=== PATIENT | female | born 1985 | race African-American/Black ===

== ENCOUNTER 2019-05-25 05:20 | Emergency (ER) | payer OTHER ==
[2019-05-25 05:53] LABS: ABS Monocytes 0.4 10^3/ul (0-0.8); ABS Neutrophils 2.8 10^3/ul (1.5-7.7); Eosinophil % 0.5 %; Hematocrit 34 % (35-47); Hemoglobin 10.6 g/dL (12.0-16.0); Lymphocyte % 37.3 %; Mean Corpuscular HGB Conc 32 g/dL (31-36); Mean Corpuscular Hemoglobin 23 pg (27-31); Mean Corpuscular Volume 72 fL (80-97); Mean Platelet Volume 8.5 fL (7.4-10.4); Platelet Count 300 10^3/uL (150-450); Red Blood Count 4.67 10^6 /uL (3.70-4.87); Red Cell Distribution Width 19 % (10-15); White Blood Count 5.2 10^3/uL (3.5-10.8)
[2019-05-25 05:56] LABS: INR 1.05 (0.82-1.09)
[2019-05-25 06:12] LABS: Albumin 4.1 g/dL (3.2-5.2); Albumin/Globulin Ratio 1.4 (1-3); BUN/Creatinine Ratio 13.6 (8-20); EGFR African American 97.9 (>60); EGFR Non-African American 80.9 (>60); Globulin 2.9 g/dL (2-4); Potassium 3.4 mmol/L (3.5-5.0); Total Bilirubin 0.2 mg/dL (0.2-1.0)
[2019-05-25 06:40] VITALS: BP 153/88
--- NOTE | 2019-05-25 10:34 | ED ---
HPI Chest Pain - HPI Summary HPI Summary: This patient is a 34-year-old obese female who presents to the ED with midsternal chest pain which is nonradiating. She states she's never had this before. She states she awoke and had the chest pain which lasted approximately 15 minutes and dissipated prior to arrival. On arrival into the ED, patient is asymptomatic. She states she did not have shortness of breath, no radiation of chest pain, no abdominal pain, no diaphoresis, jaw pain or neck pain while having the chest pain symptoms. The chest pain did not radiate through to the back and was not tearing and sensation. She has no cardiac history. She takes no medications. No family history of cardiac disease. Pt denies eating anything abnormal this morning and has no hx of GERD. Risks include obesity. Patient is nonsmoker. Denies caffeine, drugs or alcohol. No recent travel, calf pain, known malignancy or OCP use. - History of Current Complaint Chief Complaint: EDChestPainROMI Time Seen by Provider: 05/25/19 05:50 Hx Obtained From: Patient Onset/Duration: Started Hours Ago Timing: Constant Initial Severity: Mild Current Severity: None Pain Intensity: 0 Pain Scale Used: 0-10 Numeric Chest Pain Location: Mid Sternal Chest Pain Radiates: No Character: Dull/Aching Aggravating Factor(s): Nothing Alleviating Factor(s): Nothing Associated Signs and Symptoms: Positive: Negative - Risk Factors Pulmonary Embolism Risk Factors: Negative TAD Risk Factors: Negative - Allergy/Home Medications Allergies/Adverse Reactions: Allergies Allergy/AdvReac Type Severity Reaction Status Date / Time No Known Allergies Allergy Verified 05/25/19 05:30 Home Medications: Home Medications NK [No Home Medications Reported] 05/25/19 [History Confirmed 05/25/19] PMH/Surg Hx/FS Hx/Imm Hx Previously Healthy: Yes - Immunization History Hx Pertussis Vaccination: No Immunizations Up to Date: Yes Infectious Disease History: No Infectious Disease History: Denies: Traveled Outside the [place] in Last 30 Days - Social History Occupation: Employed Full-time Lives: Alone Alcohol Use: None Hx Substance Use: No Substance Use Type: Reports: None Hx Tobacco Use: No Smoking Status (MU): Never Smoked Tobacco Review of Systems Negative: Fever, Chills, Fatigue, Skin Diaphoresis Negative: Dental Pain Positive: Chest Pain. Negative: Palpitations Negative: Shortness Of Breath, Cough Negative: Abdominal Pain Genitourinary: Negative Positive: no symptoms reported, see HPI Negative: Arthralgia, Myalgia Negative: Headache Psychological: Normal All Other Systems Reviewed And Are Negative: Yes Physical Exam Triage Information Reviewed: Yes Vital Signs On Initial Exam: Initial Vitals Temp Pulse Resp BP Pulse Ox 98.6 F 90 20 0/0 100 05/25/19 05:30 05/25/19 05:30 05/25/19 05:30 05/25/19 05:30 05/25/19 05:30 Vital Signs Reviewed: Yes Appearance: Positive: Well-Appearing, Well-Nourished, Obese Skin: Positive: Warm, Skin Color Reflects Adequate Perfusion Head/Face: Positive: Normal Head/Face Inspection Eyes: Positive: EOMI, GLORIA, Conjunctiva Clear Neck: Positive: Supple, No Lymphadenopathy Respiratory/Lung Sounds: Positive: Clear to Auscultation, Breath Sounds Present Cardiovascular: Positive: RRR, Pulses are Symmetrical in both Upper and Lower Extremities Musculoskeletal: Positive: Normal, Strength/ROM Intact Neurological: Positive: Speech Normal Psychiatric: Positive: Normal, Affect/Mood Appropriate AVPU Assessment: Alert Procedures - Sedation Patient Received Moderate/Deep Sedation with Procedure: No Diagnostics - Vital Signs Vital Signs Temp Pulse Resp BP Pulse Ox 05/25/19 06:40 97.2 F 82 19 153/88 100 05/25/19 06:29 73 15 153/88 100 05/25/19 06:00 69 22 99 05/25/19 05:40 84 20 100 05/25/19 05:38 83 30 183/87 100 05/25/19 05:30 98.6 F 90 20 0/0 100 - Laboratory Lab Results: Lab Results 05/25/19 05/25/19 05/25/19 Range/Units 05:39 05:39 05:39 WBC 5.2 (3.5-10.8) 10^3/uL RBC 4.67 (3.70-4.87) 10^6 /uL Hgb 10.6 L (12.0-16.0) g/dL Hct 34 L (35-47) % MCV 72 L (80-97) fL MCH 23 L (27-31) pg MCHC 32 (31-36) g/dL RDW 19 H (10-15) % Plt Count 300 (150-450) 10^3/uL MPV 8.5 (7.4-10.4) fL Neut % (Auto) 53.5 % Lymph % (Auto) 37.3 % [place] % (Auto) 7.8 % Eos % (Auto) 0.5 % Baso % (Auto) 0.9 % Absolute Neuts (auto) 2.8 (1.5-7.7) 10^3/ul Absolute Lymphs (auto) 2.0 (1.0-4.8) 10^3/ul Absolute Monos (auto) 0.4 (0-0.8) 10^3/ul Absolute Eos (auto) 0.0 (0-0.6) 10^3/ul Absolute Basos (auto) 0.0 (0-0.2) 10^3/ul Absolute Nucleated RBC 0.0 10^3/ul Nucleated RBC % 0.0 INR (Anticoag Therapy) 1.05 (0.82-1.09) Sodium 139 (135-145) mmol/L Potassium 3.4 L (3.5-5.0) mmol/L Chloride 106 (101-111) mmol/L Carbon Dioxide 25 (22-32) mmol/L Anion Gap 8 (2-11) mmol/L BUN 11 (6-24) mg/dL Creatinine 0.81 (0.51-0.95) mg/dL Est GFR ( Amer) 97.9 (>60) Est GFR (Non-Af Amer) 80.9 (>60) BUN/Creatinine Ratio 13.6 (8-20) Glucose 99 (70-100) mg/dL Calcium 9.0 (8.6-10.3) mg/dL Total Bilirubin 0.20 (0.2-1.0) mg/dL AST 14 (13-39) U/L ALT 10 (7-52) U/L Alkaline Phosphatase 72 (34-104) U/L Troponin I 0.00 (<0.04) ng/mL Total Protein 7.0 (6.4-8.9) g/dL Albumin 4.1 (3.2-5.2) g/dL Globulin 2.9 (2-4) g/dL Albumin/Globulin Ratio 1.4 (1-3) Result Diagrams: 05/25/19 05:39 05/25/19 05:39 Lab Statement: Any lab studies that have been ordered have been reviewed, and results considered in the medical decision making process. Chest Pain Course/Dx - Course Course Of Treatment: Patient is evaluated for midsternal chest pain which was present acute onset this morning around 5:30 AM, lasting 15 minutes and dissipated prior to arrival. Patient states she wanted to "make sure it wasn't my heart." She has no cardiac history. No family of cardiac disease. Denies smoking history. Denies OCP use, history of hypertension or diabetes. Patient does endorse obesity. Patient denies any symptoms currently and denies any shortness of breath or CP. Labs obtained which are unremarkable including a troponin of 0.00. EKG obtained immediately on arrival which shows a sinus rhythm. HEART score = 0 = low risk of MACE. Pt will be discharged in good condition with dx of atypical chest pain. No medications given as pt was asymptomatic prior to arrival. She will f/u with PCP. - Chest Pain Differential Diagnosis/HQI/PQRI: Acute SD, Angina, Chest Wall, Other: - costchondral pain, viral syndrome, inflammation, GERD - Diagnoses Provider Diagnoses: Atypical chest pain Discharge ED - Sign-Out/Discharge Documenting (check all that apply): Patient Departure - Discharge Plan Condition: Stable Disposition: HOME Patient Education Materials: Chest Pain (ED) Referrals: No Primary Care Phys,NOPCP [Primary Care Provider] - Additional Instructions: You were seen for atypical chest pain As your symptoms have resolved and your labs were negative for any findings, you are safe for discharge at this time If you develop any worsening or changing symptoms, please return to the ED - Billing Disposition and Condition Condition: STABLE Disposition: Home
== END 2019-05-25 06:32 | disposition home or self-care (01) ==
LOC: ED 05:20
DX: R07.89 Other chest pain (principal)
CPT/HCPCS: 36415; 80053; 84484; 85025; 85610; 93005; 99283

== ENCOUNTER 2019-06-17 20:11 | Emergency (ER) | payer OTHER ==
[2019-06-17 21:39] LABS: ABS Lymphocytes 1.8 10^3/ul (1.0-4.8); ABS Monocytes 0.4 10^3/ul (0-0.8); ABS Neutrophils 2.4 10^3/ul (1.5-7.7); Eosinophil % 0.2 %; Hematocrit 36 % (35-47); Hemoglobin 11.2 g/dL (12.0-16.0); Lymphocyte % 38.9 %; Mean Corpuscular HGB Conc 31 g/dL (31-36); Mean Corpuscular Hemoglobin 23 pg (27-31); Mean Corpuscular Volume 72 fL (80-97); Mean Platelet Volume 8.7 fL (7.4-10.4); Nucleated Red Blood Cells % 0.1; Platelet Count 316 10^3/uL (150-450); Red Blood Count 4.96 10^6 /uL (3.70-4.87); Red Cell Distribution Width 18 % (10-15); White Blood Count 4.8 10^3/uL (3.5-10.8)
--- NOTE | 2019-06-17 21:44 | ED ---
HPI Chest Pain - HPI Summary HPI Summary: 34 year old female presents with chest pain today. States that she was working out and after she stopped she noticed is she raised her left arm she had pain. States she only has pain when she lifts her arm. She denies any shortness of breath. no recent illness. He only has pain on the lateral aspect of her chest more onto her breast. Denies any recent illness. No cough. No vomiting or nausea. Has no family history of cardiac disease or PE. Nonsmoker. Has no medical conditions. No recent travel. Is not on control. pain is sharp in nature when has such. no pain currently. does not radiate anywhere. - History of Current Complaint Chief Complaint: EDChestWallPain Time Seen by Provider: 06/17/19 21:36 Pain Intensity: 3 - Allergy/Home Medications Allergies/Adverse Reactions: Allergies Allergy/AdvReac Type Severity Reaction Status Date / Time No Known Allergies Allergy Verified 05/25/19 05:30 PMH/Surg Hx/FS Hx/Imm Hx Endocrine/Hematology History: Denies: Hx Anticoagulant Therapy Respiratory History: Denies: Hx Asthma Infectious Disease History: No Infectious Disease History: Denies: Traveled Outside the [place] in Last 30 Days - Family History Known Family History: Positive: Non-Contributory - Social History Alcohol Use: None Hx Substance Use: No Substance Use Type: Reports: None Hx Tobacco Use: No Smoking Status (MU): Never Smoked Tobacco Review of Systems Positive: Chest Pain Negative: Shortness Of Breath, Cough Negative: Abdominal Pain All Other Systems Reviewed And Are Negative: Yes Physical Exam Triage Information Reviewed: Yes Vital Signs On Initial Exam: Initial Vitals Temp Pulse Resp BP Pulse Ox 97.4 F 81 18 172/105 100 06/17/19 20:18 06/17/19 20:18 06/17/19 20:18 06/17/19 20:18 06/17/19 20:18 Vital Signs Reviewed: Yes Appearance: Positive: Well-Appearing Skin: Positive: Warm, Dry Head/Face: Positive: Normal Head/Face Inspection Eyes: Positive: Normal, Conjunctiva Clear ENT: Positive: Pharynx normal Respiratory/Lung Sounds: Positive: Clear to Auscultation, Breath Sounds Present Cardiovascular: Positive: Normal, RRR Abdomen Description: Positive: Nontender, Soft Bowel Sounds: Positive: Present Musculoskeletal: Positive: Normal Neurological: Positive: Normal Psychiatric: Positive: Normal Procedures - Sedation Patient Received Moderate/Deep Sedation with Procedure: No Diagnostics - Vital Signs Vital Signs Temp Pulse Resp BP Pulse Ox 06/17/19 20:18 97.4 F 81 18 172/105 100 - Laboratory Lab Results: Lab Results 06/17/19 Range/Units 21:31 WBC 4.8 (3.5-10.8) 10^3/uL RBC 4.96 H (3.70-4.87) 10^6 /uL Hgb 11.2 L (12.0-16.0) g/dL Hct 36 (35-47) % MCV 72 L (80-97) fL MCH 23 L (27-31) pg MCHC 31 (31-36) g/dL RDW 18 H (10-15) % Plt Count 316 (150-450) 10^3/uL MPV 8.7 (7.4-10.4) fL Neut % (Auto) 51.1 % Lymph % (Auto) 38.9 % [place] % (Auto) 8.8 % Eos % (Auto) 0.2 % Baso % (Auto) 1.0 % Absolute Neuts (auto) 2.4 (1.5-7.7) 10^3/ul Absolute Lymphs (auto) 1.8 (1.0-4.8) 10^3/ul Absolute Monos (auto) 0.4 (0-0.8) 10^3/ul Absolute Eos (auto) 0.0 (0-0.6) 10^3/ul Absolute Basos (auto) 0.0 (0-0.2) 10^3/ul Absolute Nucleated RBC 0.0 10^3/ul Nucleated RBC % 0.1 Result Diagrams: 06/17/19 21:31 06/17/19 21:31 Lab Statement: Any lab studies that have been ordered have been reviewed, and results considered in the medical decision making process. - Radiology chest Radiology Interpretation Completed By: ED Physician Summary of Radiographic Findings: no active disease - EKG No standard instances Cardiac Rate: NL EKG Rhythm: Sinus Rhythm EKG Comparison: No Significant Change Summary of EKG Findings: sinus rhythm Chest Pain Course/Dx - Course Course Of Treatment: 34 year old female presents with chest pain today. States that she was working out and after she stopped she noticed is she raised her left arm she had pain. States she only has pain when she lifts her arm. She denies any shortness of breath. no recent illness. He only has pain on the lateral aspect of her chest more onto her breast. Denies any recent illness. No cough. No vomiting or nausea. Has no family history of cardiac disease or PE. Nonsmoker. Has no medical conditions. No recent travel. Is not on control. On exam lungs CTA. Heart regular rate and rhythm. EKG shows sinus rhythm. wbc normal. chest xray shows no acute findings. wbc normal. troponin zero. no risk factor for PE. with pain only with movement is likely muscular. has no pain now. told follow up with primary. gave referral to cardiology if continues having chest pain as was seen here a couple weeks ago for a different type of chest pain. told take ibuprofen. patient understand and agrees with plan. - Chest Pain Differential Diagnosis/HQI/PQRI: Angina, Chest Wall, Pulmonary Embolism - Diagnoses Provider Diagnoses: Chest wall pain Discharge ED - Sign-Out/Discharge Documenting (check all that apply): Patient Departure - Discharge Plan Condition: Good Disposition: HOME Patient Education Materials: Chest Wall Pain (ED) Referrals: No Primary Care Phys,NOPCP [Primary Care Provider] - Gadiel Rosales MD [Medical Doctor] - Additional Instructions: follow up with primary within 5 days Take tyenlol or ibuprofen for pain every 6 hours a referral was given to cardiology if continue to have chest pain Return to ED if develop any new or worsening symptoms - Billing Disposition and Condition Condition: GOOD Disposition: Home
[2019-06-17 21:56] LABS: ALT 10 U/L (7-52); AST 14 U/L (13-39); Albumin 4.4 g/dL (3.2-5.2); Albumin/Globulin Ratio 1.1 (1-3); Alkaline Phosphatase 66 U/L (34-104); Anion Gap 7 mmol/L (2-11); BUN/Creatinine Ratio 8.8 (8-20); Blood Urea Nitrogen 7 mg/dL (6-24); C Reactive Protein 13.33 mg/L (<8.01); CO2 Carbon Dioxide 28 mmol/L (22-32); Calcium 9.8 mg/dL (8.6-10.3); Chloride 103 mmol/L (101-111); EGFR African American 99.4 (>60); EGFR Non-African American 82.1 (>60); Globulin 3.9 g/dL (2-4); Glucose 97 mg/dL (70-100); Potassium 3.6 mmol/L (3.5-5.0); Sodium 138 mmol/L (135-145); Total Protein 8.3 g/dL (6.4-8.9)
[2019-06-17 22:02] LABS: HCG Pregnancy < 0.60 mIU/mL
[2019-06-17 22:22] VITALS: BP 143/92
== END 2019-06-17 22:26 | disposition home or self-care (01) ==
LOC: ED 20:11
DX: R07.89 Other chest pain (principal)
CPT/HCPCS: 36415; 71045; 80053; 84484; 84702; 85025; 86140; 93005; 99282

== ENCOUNTER 2019-07-02 19:53 | Emergency (ER) | payer OTHER ==
--- NOTE | 2019-07-02 20:20 | ED ---
HPI Chest Pain - HPI Summary HPI Summary: Patient complains of right-sided sternal and left side chest pain lateral to left breast. Pain is intermittent, occurs every once in a while, has been present since beginning of May when patient started to go to the gym to work out again. States pain is never worse than they 3-10. One out of 10 pain here in ED. Patient has been seen a couple times for same symptoms. Denies SOB, CP with exertion, or while exercising. Pain mostly when patient elevates her left arm. Patient cleaned house yesterday and did more physical work yesterday then normal. Patient has seen primary care also this past Thursday and was told pain not likely cardiac. Pain does improve with Tylenol. Last Tylenol at 11 AM. Denies family cardiac history, recent travel, OCPs, recent surgery or trauma, SOB, cough, fever, N/V/D, lightheadedness, abdominal pain, change in urine, change in BM. Medical history is anemia. Negative smoker. Prior visits on 05/25 and 06/17 normal EKG, normal x-ray, normal labs. Negative family cardiac history. - History of Current Complaint Chief Complaint: EDChestPainROMI Time Seen by Provider: 07/02/19 20:13 Hx Obtained From: Patient Onset/Duration: Started Weeks Ago Timing: Intermittent Initial Severity: Mild Current Severity: Mild Pain Intensity: 1 Pain Scale Used: 0-10 Numeric Chest Pain Location: Mid Sternal, Left Lateral Chest Pain Radiates: No Character: Dull/Aching Aggravating Factor(s): Movement Alleviating Factor(s): Position Associated Signs and Symptoms: Positive: Chest Pain - Allergy/Home Medications Allergies/Adverse Reactions: Allergies Allergy/AdvReac Type Severity Reaction Status Date / Time No Known Allergies Allergy Verified 07/02/19 20:05 PMH/Surg Hx/FS Hx/Imm Hx Endocrine/Hematology History: Denies: Hx Anticoagulant Therapy Cardiovascular History: Denies: Hx Pacemaker/ICD Respiratory History: Denies: Hx Asthma History: Denies: Hx Dialysis Sensory History: Denies: Hx Eye Prosthesis Opthamlomology History: Denies: Hx Legally Blind EENT History: Denies: Hx Deafness Neurological History: Denies: Hx CVA Infectious Disease History: No Infectious Disease History: Denies: Traveled Outside the [place] in Last 30 Days - Family History Known Family History: Positive: Non-Contributory - Social History Alcohol Use: None Hx Substance Use: No Substance Use Type: Reports: None Hx Tobacco Use: No Smoking Status (MU): Never Smoked Tobacco Review of Systems Constitutional: Negative Eyes: Negative ENT: Negative Positive: Chest Pain Respiratory: Negative Gastrointestinal: Negative Genitourinary: Negative Musculoskeletal: Negative Skin: Negative Neurological: Negative Psychological: Normal All Other Systems Reviewed And Are Negative: Yes Physical Exam - Summary Physical Exam Summary: Left lateral chest pain mildly reproducible with palpation. Right-sided chest pain not reproducible. Side chest pain reproducible with movement of left arm above shoulder. Triage Information Reviewed: Yes Vital Signs On Initial Exam: Initial Vitals Temp Pulse Resp BP Pulse Ox 97.8 F 81 15 168/105 100 07/02/19 20:03 07/02/19 20:03 07/02/19 20:03 07/02/19 20:03 07/02/19 20:03 Vital Signs Reviewed: Yes Appearance: Positive: Well-Appearing Skin: Positive: Warm Head/Face: Positive: Normal Head/Face Inspection Eyes: Positive: Normal Neck: Positive: Supple Respiratory/Lung Sounds: Positive: Clear to Auscultation Cardiovascular: Positive: Normal Abdomen Description: Positive: Nontender Musculoskeletal: Positive: Normal Neurological: Positive: Normal Psychiatric: Positive: Normal AVPU Assessment: Alert - Dawson Coma Scale Best Eye Response: 4 - Spontaneous Best Motor Response: 6 - Obeys Commands Best Verbal Response: 5 - Oriented Coma Scale Total: 15 Procedures - Sedation Patient Received Moderate/Deep Sedation with Procedure: No Diagnostics - Vital Signs Vital Signs Temp Pulse Resp BP Pulse Ox 07/02/19 20:03 97.8 F 81 15 168/105 100 - Laboratory Result Diagrams: 07/02/19 20:21 07/02/19 20:21 Lab Statement: Any lab studies that have been ordered have been reviewed, and results considered in the medical decision making process. Chest Pain Course/Dx - Course Course Of Treatment: Patient complains of right-sided sternal and left side chest pain lateral to left breast. Pain is intermittent, occurs every once in a while, has been present since beginning of May when patient started to go to the gym to work out again. States pain is never worse than they 3-4/10. One out of 10 pain here in ED. Patient has been seen a couple times for same symptoms. Denies SOB, CP with exertion, or while exercising. Pain mostly when patient elevates her left arm. Patient cleaned house yesterday and did more physical work yesterday then normal. Patient has seen primary care also this past Thursday and was told pain not likely cardiac. Pain does improve with Tylenol. Last Tylenol at 11 AM. Denies family cardiac history, recent travel, OCPs, recent surgery or trauma, SOB, cough, fever, N/V/D, lightheadedness, abdominal pain, change in urine, change in BM. Medical history is anemia. Negative smoker. Prior visits on 05/25 and 06/17 normal EKG, normal x-ray, normal labs. Negative family cardiac history. Vital signs within normal limits. Labs within normal limits. EKG sinus rhythm, heart rate of 76, same as prior. - Diagnoses Provider Diagnoses: Chest wall pain Discharge ED - Sign-Out/Discharge Documenting (check all that apply): Patient Departure - Discharge Plan Condition: Stable Disposition: HOME Patient Education Materials: Chest Wall Pain (ED) Referrals: No Primary Care Phys,NOPCP [Primary Care Provider] - Additional Instructions: Continue taking Tylenol as directed for chest wall pain. Rest left upper extremity as much as possible for a few days. If symptoms persist for more than two weeks follow-up with cardiology Dr Lamb for further evaluation. - Billing Disposition and Condition Condition: STABLE Disposition: Home
[2019-07-02 20:33] LABS: ABS Lymphocytes 1.5 10^3/ul (1.0-4.8); ABS Monocytes 0.4 10^3/ul (0-0.8); ABS Neutrophils 2.3 10^3/ul (1.5-7.7); Eosinophil % 0.4 %; Hematocrit 36 % (35-47); Hemoglobin 11.2 g/dL (12.0-16.0); Lymphocyte % 35.7 %; Mean Corpuscular HGB Conc 32 g/dL (31-36); Mean Corpuscular Hemoglobin 23 pg (27-31); Mean Corpuscular Volume 72 fL (80-97); Mean Platelet Volume 9.4 fL (7.4-10.4); Nucleated Red Blood Cells % 0.1; Platelet Count 297 10^3/uL (150-450); Red Blood Count 4.92 10^6 /uL (3.70-4.87); Red Cell Distribution Width 19 % (10-15); White Blood Count 4.2 10^3/uL (3.5-10.8)
[2019-07-02 20:34] LABS: INR 1.11 (0.82-1.09)
[2019-07-02 20:46] LABS: Albumin 4.3 g/dL (3.2-5.2); Albumin/Globulin Ratio 1.2 (1-3); BUN/Creatinine Ratio 8.6 (8-20); Calcium 9.2 mg/dL (8.6-10.3); EGFR African American 97.9 (>60); EGFR Non-African American 80.9 (>60); Globulin 3.6 g/dL (2-4); Potassium 3.4 mmol/L (3.5-5.0); Total Bilirubin 0.3 mg/dL (0.2-1.0); Total Protein 7.9 g/dL (6.4-8.9)
[2019-07-02] MEDS ORDERED: Potassium Chlor TAB* 20 MEQ TAB.ER PO ONE (21:00)
[2019-07-02] MEDS ORDERED: Acetaminophen TAB* 325 MG PO ONE (21:01)
[2019-07-02 21:09] VITALS: BP 165/101
== END 2019-07-02 21:22 | disposition home or self-care (01) ==
LOC: ED 19:53
DX: R07.89 Other chest pain (principal)
CPT/HCPCS: 36415; 80053; 84484; 85025; 85610; 93005; 99282; A9270-GY